=== PATIENT | female | born 1985 | race Caucasian/White ===

== ENCOUNTER 2020-12-31 13:42 | Emergency (ER) | payer BC ==
[2020-12-31 14:16] LABS: Absolute Lymphocytes (CBC) 2.9 K/uL (0.7-4.9); Basophils % 0.9 % (0-1.3); Hematocrit 42.2 % (36.0-45.0); Lymphocytes % 38.4 % (15.3-44.8); MPV 8.3 fL (7.6-11.3); RBC Red Blood Cell Count 4.75 M/uL (3.86-4.86)
[2020-12-31] MEDS ORDERED: ONDANSETRON 4 MG/2 ML VIAL ONE (14:20)
[2020-12-31] MEDS ORDERED: KETOROLAC 30 MG/ML INJ ONE (14:20)
[2020-12-31 14:27] LABS: Urine Blood 2+ (Negative); Urine Glucose Negative (Negative); Urine Protein Negative (Negative); Urine Specific Gravity >=1.030 (1.005-1.030); Urine pH 5.5 (5.0-7.0)
[2020-12-31 14:41] LABS: Potassium 3.2 mmol/L (3.5-5.1)
[2020-12-31 14:59] LABS: Urine Bacteria <20 /HPF (<20)
[2020-12-31 15:00] LABS: Urine Mucus 1+ /HPF (NONE SEEN)
--- NOTE | 2020-12-31 15:27 | RAD REPORT ---
EXAM DESCRIPTION: CT - Stone Protocol - 12/31/2020 2:52 pm CLINICAL HISTORY: FLANK PAIN COMPARISON: No comparisons TECHNIQUE: Axial 5 mm thick images were obtained without oral or IV contrast. The [id number] span s the entirety of the system including uppermost abdomen and lung bases. All CT scans are performed using dose optimization technique as appropriate and may include automated exposure control or mA/KV adjustment according to patient size. FINDINGS: Moderate dilatation of the left renal pelvis and calices noted with mild dilatation of the ureter. A punctate 2-3 mm calcification is present in or adjacent to the UVJ. Urinary bladder is ful ly collapsed. There is no perinephric stranding or obvious renal edema. No suspicious renal masses. I sodense masses and pyelonephritis are not excluded on a stone protocol CT scan. No significant adrena l finding. Enlarged uterus is present without clearly defined fibroids. Approximately 2.5 cm right re nal cyst is present. No significant ovarian process identifiable. Imaged portions of the liver, spleen and pancreas show no suspicious findings on non-contrast imaging . No gallbladder or biliary tree abnormality identified. No suspicious bowel findings. Moderate stool volume is present throughout the colon. No appendicitis findings. No hernia, mass or bulky lymphadenopathy noted. No free air, free fluid or inflammatory stranding. No significant bony abnormality. IMPRESSION: Mild to moderate dilatation of the left-sided pelvis and ureter secondary to a 2-3 mm le ft UVJ calculus. Isodense masses and pyelonephritis are not excluded on stone protocol technique.
[2020-12-31] MEDS ORDERED: MORPHINE 4 MG/ML SYR ONE (15:53)
--- NOTE | 2020-12-31 15:56 | ER ---
Nurse's Notes [facility] Name: Stephanie Toney Age: 35 yrs Sex: Female : 1985 Arrival Date: 12/31/2020 Time: 13:48 Bed 7 Private MD: Diagnosis: Hydronephrosis with renal and ureteral calculous obstruction Presentation: 12/31 14:08 Chief complaint: Left flank pain 10/10 x 2 days. Coronavirus screen: At this time, the hb client does not indicate any symptoms associated with coronavirus-19. Ebola Screen: No symptoms or risks identified at this time. Initial Sepsis Screen: Does the patient meet any 2 criteria? No. Patient's initial sepsis screen is negative. Does the patient have a suspected source of infection? No. Patient's initial sepsis screen is negative. Risk Assessment: Do you want to hurt yourself or someone else? Patient reports no desire to harm self or others. Onset of symptoms was December 30, 2020. 14:08 Method Of Arrival: Ambulatory hb 14:08 Acuity: JAYME 3 hb Historical: - Allergies: 14:10 No Known Allergies; hb - Immunization history:: Adult Immunizations up to date. - Social history:: Smoking status: Patient denies any tobacco usage or history of. Screenin:11 Abuse screen: Denies threats or abuse. Denies injuries from another. Nutritional hb screening: No deficits noted. Tuberculosis screening: No symptoms or risk factors identified. Fall Risk None identified. Assessment: 14:20 General: Appears in no apparent distress. uncomfortable, Behavior is calm, cooperative. hb Pain: Pain currently is 8 out of 10 on a pain scale. Neuro: Level of Consciousness is awake, alert, obeys commands, Oriented to person, place, time, situation. Cardiovascular: Patient's skin is warm and dry. Rhythm is regular. Respiratory: Airway is patent Respiratory effort is even, unlabored, Respiratory pattern is regular, symmetrical. GI: Reports flank pain. : No signs and/or symptoms were reported regarding the genitourinary system. EENT: No signs and/or symptoms were reported regarding the EENT system. Derm: Skin is pink, warm \T\ dry. Musculoskeletal: No signs and/or symptoms reported regarding the musculoskeletal system. 15:00 Reassessment: Patient appears in no apparent distress at this time. Patient and/or hb family updated on plan of care and expected duration. Pain level reassessed. Patient is alert, oriented x 3, equal unlabored respirations, skin warm/dry/pink. 15:36 Reassessment: Pt c/o flank pain 8-9/10. TONY Mitchell notified, morphine administered as hb ordered. 16:09 Reassessment: Discharge pending transportation. hb Vital Signs: 14:15 BP 118 / 83; Pulse 74; Resp 16; Temp 97.8; Pulse Ox 100% on R/A; Pain 8/10; hb 15:40 BP 125 / 80; Pulse 69; Resp 15; Pulse Ox 100% ; Pain 9/10; hb ED Course: 13:48 Patient arrived in ED. mr 13:48 Stephen Ribeiro PA is PHCP. jr8 13:48 Gregory Ríos MD is Attending Physician. jr8 13:54 Delmy Gordon, RN is Primary Nurse. hb 14:04 Inserted saline lock: 20 gauge in left antecubital area, using aseptic technique. Blood hb collected. 14:10 Triage completed. hb 14:10 Arm band placed on. hb 14:11 Patient has correct armband on for positive identification. Bed in low position. Call hb light in reach. 14:52 CT Stone Protocol In Process Unspecified. EDMS 15:54 Douglas Martinez MD is Referral Physician. jr8 16:10 No provider procedures requiring assistance completed. IV discontinued, intact, hb bleeding controlled, No redness/swelling at site. Administered Medications: 14:07 Drug: Zofran (Ondansetron) 4 mg Route: IVP; Site: left antecubital; hb 15:00 Follow up: Response: No adverse reaction hb 14:08 Drug: TORadol (ketorolac) 30 mg Route: IVP; Site: left antecubital; hb 15:00 Follow up: Response: No adverse reaction hb 15:34 Drug: morphine 4 mg Route: IVP; Site: left antecubital; hb 16:10 Follow up: Response: No adverse reaction hb 15:49 Drug: Potassium Chloride 20 mEq Route: PO; sv 16:10 Follow up: Response: No adverse reaction hb 16:05 Drug: [place] (HYDROcodone-acetaminophen) (7.5 mg-325 mg) 1 tabs Route: PO; hb 16:09 Follow up: Response: Medication administered at discharge. Outcome: 15:55 Discharge ordered by MD. lewis 16:10 Discharged to home ambulatory. hb 16:10 Condition: stable 16:10 Discharge instructions given to patient, Instructed on discharge instructions, follow up and referral plans. medication usage, Demonstrated understanding of instructions, follow-up care, medications, Prescriptions given X 3. 16:23 Patient left the ED. hb Signatures: Dispatcher [employer] Yoselyn Preciado, YENI JAIME Kristina Garcia Josh, PA PA jr8 Baxter, Heather, RN RN hb
--- NOTE | 2020-12-31 15:56 | EDPHYS ---
Physician Documentation [facility] Name: Stephanie Toney Age: 35 yrs Sex: Female : 1985 Arrival Date: 12/31/2020 Time: 13:48 Bed 7 Private MD: ED Physician Gregory Ríos HPI: 12/31 15:53 This 35 yrs old Female presents to ER via Ambulatory with complaints of jr8 Possible Kidney Stone. 15:53 The patient complains of pain in the left flank. The pain radiates to the abdomen. jr8 Onset: The symptoms/episode began/occurred acutely, today. Modifying factors: The symptoms are alleviated by nothing. the symptoms are aggravated by movement. Associated signs and symptoms: Pertinent positives: nausea. Severity of pain: At its worst the pain was moderate in the emergency department the pain is unchanged. The patient has not experienced similar symptoms in the past. The patient has not recently seen a physician. Historical: - Allergies: 14:10 No Known Allergies; hb - Immunization history:: Adult Immunizations up to date. - Social history:: Smoking status: Patient denies any tobacco usage or history of. ROS: 15:53 Constitutional: Negative for fever, chills, and weight loss. jr8 15:53 Abdomen/GI: Positive for abdominal pain, nausea, Negative for vomiting, diarrhea, constipation, abdominal cramps, abdominal distension. 15:53 Back: Positive for flank pain, on the left. 15:53 All other systems are negative. Exam: 15:53 Cardiovascular: Regular rate and rhythm with a normal S1 and S2. No gallops, murmurs, jr8 or rubs. Normal PMI, no JVD. No pulse deficits. Respiratory: Lungs have equal breath sounds bilaterally, clear to auscultation and percussion. No rales, rhonchi or wheezes noted. No increased work of breathing, no retractions or nasal flaring. Abdomen/GI: Soft, non-tender, with normal bowel sounds. No distension or tympany. No guarding or rebound. No evidence of tenderness throughout. Skin: Warm, dry with normal turgor. Normal color with no rashes, no lesions, and no evidence of cellulitis. MS/ Extremity: Pulses equal, no cyanosis. Neurovascular intact. Full, normal range of motion. Neuro: Awake and alert, GCS 15, oriented to person, place, time, and situation. Motor strength 5/5 in all extremities. Sensory grossly intact. 15:53 Constitutional: The patient appears alert, awake, in obvious pain, uncomfortable. 15:53 Back: pain, that is moderate, of the left flank, ROM is normal, normal spinal alignment noted, CVA tenderness, that is moderate, is noted on the left. Vital Signs: 14:15 BP 118 / 83; Pulse 74; Resp 16; Temp 97.8; Pulse Ox 100% on R/A; Pain 8/10; hb 15:40 BP 125 / 80; Pulse 69; Resp 15; Pulse Ox 100% ; Pain 9/10; hb MDM: 13:53 Patient medically screened. [facility] 15:53 Data reviewed: vital signs, nurses notes, lab test result(s), radiologic studies, CT jr8 scan. Data interpreted: Pulse oximetry: on room air is 100 %. Interpretation: normal. Counseling: I had a detailed discussion with the patient and/or guardian regarding: the historical points, exam findings, and any diagnostic results supporting the discharge/admit diagnosis, lab results, radiology results, the need for outpatient follow up, a urologist, to return to the emergency department if symptoms worsen or persist or if there are any questions or concerns that arise at home. Response to treatment: the patient's symptoms have markedly improved after treatment. 12/31 13:53 Order name: Basic Metabolic Panel; Complete Time: 14:51 [facility] 12/31 13:53 Order name: CBC with Diff; Complete Time: 14:35 [facility] 12/31 13:53 Order name: Urine Microscopic Only; Complete Time: 15:41 [facility] 12/31 13:54 Order name: CT Stone Protocol; Complete Time: 15:41 [facility] 12/31 14:27 Order name: Urine Dipstick-Ancillary; Complete Time: 14:35 [facility] 12/31 14:29 Order name: Urine --Ancillary (enter results); Complete Time: 14:56 eb 12/31 13:53 Order name: IV Saline Lock; Complete Time: 14:07 [facility] 12/31 13:53 Order name: Labs collected and sent; Complete Time: 14:07 [facility] 12/31 13:53 Order name: Urine Test (obtain specimen); Complete Time: 14:07 [facility] 12/31 13:53 Order name: Urine Dipstick-Ancillary (obtain specimen); Complete Time: 14: Administered Medications: 14:07 Drug: Zofran (Ondansetron) 4 mg Route: IVP; Site: left antecubital; hb 15:00 Follow up: Response: No adverse reaction hb 14:08 Drug: TORadol (ketorolac) 30 mg Route: IVP; Site: left antecubital; hb 15:00 Follow up: Response: No adverse reaction hb 15:34 Drug: morphine 4 mg Route: IVP; Site: left antecubital; hb 16:10 Follow up: Response: No adverse reaction hb 15:49 Drug: Potassium Chloride 20 mEq Route: PO; sv 16:10 Follow up: Response: No adverse reaction hb 16:05 Drug: [place] (HYDROcodone-acetaminophen) (7.5 mg-325 mg) 1 tabs Route: PO; hb 16:09 Follow up: Response: Medication administered at discharge. hb Disposition: 12/31/20 15:55 Discharged to Home. Impression: Hydronephrosis with renal and ureteral calculous obstruction. - Condition is Stable. - Discharge Instructions: Kidney Stones, Hydronephrosis. - Prescriptions for Tylenol- Codeine #3 300-30 mg Oral Tablet - take 2 tablets by ORAL route every 4-6 hours As needed; 20 tablet. Zofran 4 mg Oral Tablet - take 1 tablet by ORAL route every 12 hours As needed; 20 tablet. Flomax 0.4 mg Oral Capsule, Sust. Release 24 hr - take 1 capsule by ORAL route once daily 1/2 hour following the same meal each day; 30 capsule. - Medication Reconciliation Form, Thank You Letter, Antibiotic Education, Prescription Opioid Use, Work release form form. - Follow up: Douglas Martinez MD; When: 2 - 3 days; Reason: Recheck today's complaints, Continuance of care, Re-evaluation by your physician. - Problem is new. - Symptoms have improved. Signatures: Dispatcher [employer] EDYoselyn Herring, RN RN Stephen Reese PA PA jr8 Delmy Gordon RN RN Corrections: (The following items were deleted from the chart) 16:23 15:55 12/31/2020 15:55 Discharged to Home. Impression: Hydronephrosis with renal and hb ureteral calculous obstruction. Condition is Stable. Forms are Medication Reconciliation Form, Thank You Letter, Antibiotic Education, Prescription Opioid Use. Follow up: Douglas Martinez; When: 2 - 3 days; Reason: Recheck today's complaints, Continuance of care, Re-evaluation by your physician. Problem is new. Symptoms have improved. jr8
[2020-12-31] MEDS ORDERED: POTASSIUM CL SA 10 MEQ TAB PO ONE (16:08)
[2020-12-31] MEDS ORDERED: PIPER/TAZO/NS 3.375gm 3.375 GM/100 ML BAG ONE (16:13)
[2020-12-31] MEDS ORDERED: HYDROCODONE/APAP 7.5/325 MG TAB ONE (16:21)
[2020-12-31 16:32] VITALS: TEMP 97.8; O2SAT 100
[2020-12-31 16:33] VITALS: BP 125/80
== END 2020-12-31 16:23 | disposition home or self-care (01) ==
LOC: ER 13:42
DX: N13.2 Hydronephrosis with renal and ureteral calculous obstruction (principal)
CPT/HCPCS: 85025; 80048; 36415; 81025; 76377; 74176; J2543; J2405; 81003; 81015